=== PATIENT | male | born 1955 | race Caucasian/White ===

== ENCOUNTER 2024-07-08 15:38 | Emergency (ER) | payer MEDICARE, MEDICAID, SELFPAY ==
--- NOTE | 2024-07-08 15:42 | EKG_ITS ---
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1955 Requested By: ED Temporary Provider Order Number: [id number] Reading MD: ED Temporary Provider Measurements Intervals [place] Rate: 67 P: 22 VT: 188 QRS: -10 QRSD: 144 T: -13 QT: 449 QTc: 474 Interpretive Statements SINUS RHYTHM WITH OCCASIONAL VENTRICULAR PREMATURE COMPLEXES POSSIBLE LEFT ATRIAL ENLARGEMENT [-0.1mV P-WAVE IN V1/V2] INDETERMINATE AXIS RIGHT BUNDLE BRANCH BLOCK [120+ ms QRS DURATION, UPRIGHT V1, 40+ ms S IN I/aVL/V4/V5/V6] MODERATE T-WAVE ABNORMALITY, CONSIDER LATERAL ISCHEMIA [-0.1+ mV T-WAVE IN I/aVL/V5/V6] Compared to ECG 03/24/2022 15:20:25 Ventricular premature complex(es) now present T-wave abnormality now present Possible ischemia now present /store/S0/[id number]/ecg/[id number].pdf
[2024-07-08 15:57] VITALS: BP 131/78; PULSE 69; RESP 22; TEMP 36.8; O2SAT 98
--- NOTE | 2024-07-08 15:59 | XR_ITS ---
Examination: PA lateral chest 2 views TECHNIQUE: Upright PA lateral chest 2 views Exam date and time: July 08, 2024 1728 hours INDICATIONS: Shortness of breath chest pain beginning today. FINDINGS: Bibasilar pneumonia, significant right base Mild prominence left ventricle CABG IMPRESSION: Bibasilar pneumonia, significant right base
--- NOTE | 2024-07-08 15:59 | PD.EDRME ---
Rapid Medical Screening Exam RME Arrival date/time: 07/08/24 15:38 69-year-old male presents the emergency department for complaint of shortness of breath Chief Complaint: Shortness of Breath/Dyspnea Vital signs: Vital Signs Temperature 98.2 F 07/08/24 15:57 Pulse Rate 69 07/08/24 15:57 Respiratory Rate 22 H 07/08/24 15:57 Blood Pressure 131/78 H 07/08/24 15:57 Pulse Oximetry (%) 98 07/08/24 15:57 Oxygen Delivery Method Room Air 07/08/24 15:57
[2024-07-08 16:20] LABS: Basophils % (Auto) 0 % (0-2.5); Eosinophils # (Auto) 0.3 Thou/mm3 (0.0-0.5); Eosinophils % (Auto) 2 % (0-10); Hematocrit 38.8 % (41.0-53.0); Hemoglobin 13.3 g/dL (13.5-16.0); Immature Granulocytes % (Auto) 0 % (0-0); Immature Granulocytes Auto 0.04 Thou/mm3 (0.00-0.00); Lymphocytes # (Auto) 1.1 Thou/mm3 (1.0-4.8); Lymphocytes % (Auto) 8 % (10-50); Mean Corpuscular HGB Conc 34.3 g/dl (31.0-37.0); Mean Corpuscular Hemoglobin 30.2 pg (25.0-35.0); Mean Corpuscular Volume 88 fL (80-100); Monocytes # (Auto) 1.1 Thou/mm3 (0.0-0.8); Monocytes % (Auto) 8 % (0-12); Neutrophils # (Auto) 10.9 Thou/mm3 (1.8-7.7); Neutrophils % (Auto) 81 % (37-80); Nucleated Red Blood Cell % 0 /100 WBC (0); Platelet Count 158 Thou/mm3 (140-440); RDW Standard Deviation 47.3 fL (35.1-43.9); Red Blood Count 4.41 Miln/mm3 (4.50-5.90); White Blood Count 13.5 Thou/mm3 (3.8-10.6)
[2024-07-08 16:32] LABS: INR 1.1 (0.9-1.3); Partial Thromboplastin Time 27.8 Seconds (22.0-36.0); Prothrombin Time 12.2 Seconds (9.0-12.2)
[2024-07-08 16:40] LABS: Alanine Aminotransferase 21 U/L (10-49); Albumin, Serum 4.2 gm/dL (3.4-4.8); Albumin/Globulin Ratio 1.5 (1.2-2.2); Alkaline Phosphatase 108 U/L (46-116); Anion Gap 6 (7-16); Aspartate Amino Transferase 26 U/L (0-34); BUN/Creatinine Ratio 21 Ratio (12-20); Bilirubin,Total 0.7 mg/dL (0.3-1.2); Blood Urea Nitrogen 29 mg/dL (9-23); Calcium 8.9 mg/dL (8.3-10.6); Calcium (Corrected) 8.9 mg/dL (8.5-10.1); Carbon Dioxide 26.1 mMol/L (20.0-31.0); Chloride 110 mMol/L (98-107); Creatinine (Component) 1.4 mg/dL (0.6-1.3); Globulin 2.8 gm/dL (2.3-3.5); Glucose 100 mg/dL (74-106); Magnesium 1.9 mg/dL (1.6-2.6); Osmolality,Calculated 288 (275-295); Potassium 4.4 mMol/L (3.4-5.1); Sodium 142 mMol/L (136-145); Troponin I 0.032 ng/mL (0.0-0.045); eGFR 54 See Note
[2024-07-08 16:45] LABS: B-Type Natriuretic Peptide 837 pg/mL (0-100)
[2024-07-08 20:17] VITALS: BP 149/100; PULSE 80; RESP 17; TEMP 36.7; O2SAT 97
--- NOTE | 2024-07-08 20:23 | PD.EDADULT ---
ED General RME/HPI General Chief complaint: Shortness of Breath/Dyspnea Stated complaint: SOB X 3 MONTHS Time Seen by Provider: 07/08/24 19:57 Arrival date/time: 07/08/24 15:38 CC: Shortness of breath and back pain HPI patient is a very poor historian is not sure how long it has been going on. Patient states he denies fever. Patient is disheveled ill kempt I am not sure if this patient is homeless or not. Patient denies chest pain RME / HPI RME / HPI narrative: 07/08/24 15:38 69-year-old male presents the emergency department for complaint of shortness of breath Related Data Previous Rx's ?Medication ?Instructions ?Recorded acetaminophen 325 mg capsule 650 mg (2 x 325 mg) PO QID PRN 03/24/22 (Tylenol) pain #60 caps pentoxifylline 400 mg 400 mg PO BID #30 tabs 03/24/22 tablet,extended release doxycycline hyclate 100 mg capsule 100 mg PO BID #14 caps 07/08/24 Allergies Allergy/AdvReac Type Severity Reaction Status Date / Time No Known Allergies Allergy Verified 07/08/24 15:39 Review of Systems Review of Systems Narrative Review of Systems: GEN: No fever, no chills, no weight loss EYES: No discharge, no visual changes, no pain HEENT: No ear pain, no congestion, no sore throat PULM: + shortness of breath, no cough, no congestion CV: No chest pain, no dyspnea on exertion, no palpitations GI: No nausea, no vomiting, no diarrhea, no pain, no constipation : No frequency, no urgency, no dysuria MUSC/SKEL: No joint pain, no back pain SKIN: No rash PSYCH: No hallucinations, no depression HEME/LYMPH: No easy bleeding or bruising tendencies NEURO: No weakness, no headache Past Medical History Past Medical History NEUROLOGIC: Negative Neurological Disorders CARDIAC: Positive Cardiac Disorders, Coronary Artery Disease, Atherosclerotic Heart Disease, Hypercholesterolemia, Congestive Heart Failure, Edema and Hypertension; Negative Myocardial Infarction, Cardiac Arrhythmia, Atrial Fibrillation, Angina, Heart Murmur, Peripheral Vascular Disease, Aneurysm, Congenital Heart Disease, Valvular Heart Disease, Rheumatic Fever, Cardiomyopathy, Pericarditis, Cellulitis, Deep Vein Thrombosis, Hypotension or Varicose Veins RESPIRATORY: Negative Chronic Obstructive Pulmonary Disease (COPD) GASTROINTESTINAL: Positive Gastrointestinal Disorders GENITOURINARY: Negative Genitourinary Disorders or Renal Disease MUSCULOSKELETAL: Negative Musculoskeletal Disorders ENDOCRINE: Negative Endocrine Disorders, Diabetes Mellitus Type 1 or Diabetes Mellitus Type 2 HEMATOLOGIC: Negative Blood Disorders OTHER HISTORY: Negative Autoimmune Disease Family History FAMILY HISTORY: Positive Family Cardiac Disorders, Family Gastrointestinal Problems, Family Cancer and Family Surgery; Negative Family Respiratory Disorders or Family Anesthesia Reaction Surgical History SURGICAL: Positive Cardiac Surgery, Open Heart Surgery, Coronary Artery Bypass Graft and Abdominal Surgery; Negative Endocrine Surgery or Thyroidectomy Social History SMOKING STATUS: Current some day smoker ED Exam Narrative Physical exam: [General: Thin borderline emaciated ill kempt appears not in any acute distress Head normocephalic HEENT: Eyes pupils are PERRLA EOMs are intact mouth pink dry membranes uvula is midline swallow symmetrical phonation is normal. Nose no rhinorrhea. All the subsystems of HEENT are within acceptable limits Neck is supple nontender Chest equal chest rise nontender to palpation Respiratory: Clear to auscultation no wheezes crackles or rubs CV: Rate rhythm is regular no murmurs rubs or clicks Abdomen is distended secondary to body habitus soft nontender no masses positive bowel sounds all 4 quadrants Back: Stooped, lower thoracic spinous process tenderness with palpation. No surrounding erythema or edema. No lumbar spinous process tenderness. Skin: Intact no petechiae rash induration ulceration or crepitus Extremities: Moving all extremities against resistance cap refill less than 2 seconds neurosensory intact Neuro: Awake alert oriented x3 Glascow coma 15 no focal deficits] Course Course Course Narrative: Reassessment of this patient at 2220, the patient is sound asleep oxygen saturations 95% blood pressure 131/84 with a pulse rate of 72. At this time comfortable discharging the patient home with outpatient antibiotics for pneumonia. Patient remains afebrile nontoxic-appearing Quality Measures none Orders Category Date Time Status EKG (ED ONLY) *Do not use* NOW Care 07/08/24 15:42 Completed Saline [Insert IV] NOW Care 07/08/24 20:03 Active Saline [Insert IV] NOW Care 07/08/24 20:32 Active EKG (ED Only) Stat Exams 07/08/24 15:42 Draft XR chest 2V Stat Exams 07/08/24 15:59 Completed B-Type Natriuretic Peptide Stat Lab 07/08/24 16:05 Completed CBC Stat Lab 07/08/24 16:05 Completed Comprehensive Metabolic Panel Stat Lab 07/08/24 16:05 Completed Drug Screen,Urine Stat Lab 07/08/24 15:59 Ordered Magnesium Stat Lab 07/08/24 16:05 Completed Partial Thromboplastin Time Stat Lab 07/08/24 16:05 Completed Prothrombin Time with INR Stat Lab 07/08/24 16:05 Completed Troponin I Stat Lab 07/08/24 16:05 Completed Urinalysis Stat Lab 07/08/24 15:59 Ordered Ondansetron Inj [Zofran Inj] Med 07/08/24 20:32 Discontinued 4 mg IV X1 ONE cefTRIAXone/D5w 1gm IV premix [Rocephin/D5w 1gm IV Med 07/08/24 20:04 Discontinued premix] 1 gm in 50 ml IV X1 fentaNYL INJ [Sublimaze Inj] Med 07/08/24 20:32 Discontinued 50 mcg IVP X1 ONE Vital Signs Vital signs: Vital Signs Temperature 98.2 F 07/08/24 15:57 Pulse Rate 69 07/08/24 15:57 Respiratory Rate 22 H 07/08/24 15:57 Blood Pressure 131/78 H 07/08/24 15:57 Pulse Oximetry (%) 98 07/08/24 15:57 Oxygen Delivery Method Room Air 07/08/24 15:57 Discharge Plan Plan Patient Disposition: HOME (Self Care) Patient condition on transfer: Stable Prescriptions/Referrals Prescriptions/Med Rec: New doxycycline hyclate 100 mg capsule 100 mg PO BID Qty: 14 0RF No Action pentoxifylline 400 mg tablet extended release 400 mg PO BID Qty: 30 0RF Rx Instructions: must administer with a meal/food acetaminophen [Tylenol] 325 mg capsule 650 mg PO QID PRN (Reason: pain) Qty: 60 0RF Referrals: No Primary/Family,Physician [Primary Care Provider] - In 1 week Bud Kwan MD [Physician] - In 1 week Problem List Clinical Impression: Pneumonia Patient/Caregiver Discharge Instructions Other Activity Instructions:: Rest drink plenty of fluids take the manage antibiotics as prescribed. If there is a worsening of symptoms return the emergency room for reevaluation. Education Materials: When You Have Pneumonia, ED Pneumonia (Adult) Print Language: Luxembourger Stand Alone Forms: Rae Award Info., Patient Portal Info Letter, Work/School Release PA/NURSE MIDWIFE/CLINICAL INSTRUCTOR Supervising Physician PA/NURSE MIDWIFE/CLINICAL INSTRUCTOR Supervising Physician: Flash Montelongo ENP MDM Clinical Information Provided by: patient Medical Records reviewed [facility] EKG Interpretation EKG #1: EKG Interpretation: EKG performed at 1605 shows a ventricular rate of 6 7 WV interval 188 QRS of 144 QTc of 464 sinus rhythm with occasional PVC Labs Lab(s) Interpretation(s): CBC shows a leukocytosis of 13.5 H&H of 13.3 and 38.3 respectively platelets at 158. Coags within acceptable limits CMP shows sodium 142 potassium of 4.4 chloride of 110 CO2 of 26.1 anion gap of 6 BUN of 29 creatinine 1.4 No transaminitis or T. bili elevation BNP of 837 Troponin of 0.032 Imaging Imaging interpretation: Interpreted by wa Imaging Interpretation(s): Chest x-ray is interpreted by radiology as a right base pneumonia Medication Administration(s) Medication Administration History Discontinued Medications Fentanyl Citrate (Fentanyl Cit Inj 50 Mcg/Ml Amp 2ml) 50 mcg IVP X1 ONE Stop: 07/08/24 20:33 Last Admin: 07/08/24 20:47 Dose: Not Given Documented By: JOSÉ LUIS Non-Admin Reason: Wrong Patient Ceftriaxone Sodium/Dextrose (Rocephin/D5w 1gm Iv Premix) 1 gm in 50 mls @ 100 mls/hr IV X1 ONE Stop: 07/08/24 20:33 Last Admin: 07/08/24 20:38 Dose: 100 mls/hr Documented By: JOSÉ LUIS Ondansetron HCl (Ondansetron Inj 2 Mg/Ml Inj 2 Ml) 4 mg IV X1 ONE; Protocol Stop: 07/08/24 20:33 Last Admin: 07/08/24 20:47 Dose: Not Given Documented By: JOSÉ LUIS Non-Admin Reason: Wrong Patient Diagnosis Differential Diagnosis ED Complaint MDM: Pneumonia CHF ACS MA
[2024-07-08 20:29] VITALS: BMI 21.1
[2024-07-08 20:32] VITALS: BP 149/100; PULSE 75; RESP 18; TEMP 36.8; O2SAT 94
[2024-07-08] MEDS: cefTRIAXone/D5w 1gm IV premix 1 GM/50 ML BAG IV (20:38)
[2024-07-08 22:00] VITALS: BP 131/84; PULSE 74; RESP 14; O2SAT 96
[2024-07-08 22:19] VITALS: BP 131/84; PULSE 73; RESP 17; TEMP 36.7; O2SAT 95
[2024-07-08 23:00] VITALS: BP 143/84; PULSE 81; RESP 12; O2SAT 96
[2024-07-09 00:19] VITALS: PULSE 80; RESP 18; TEMP 36.8; O2SAT 97
== END 2024-07-09 00:21 | disposition home or self-care (01) ==
PROVIDERS: Nurse Practitioner Primary Care; Emergency Provider Emergency Medicine
DX: J18.9 Pneumonia, unspecified organism (principal); I49.3 Ventricular premature depolarization; I45.10 Unspecified right bundle-branch block; F17.210 Nicotine dependence, cigarettes, uncomplicated
CPT/HCPCS: 36415; 71046; 80053; 80307; 81001; 83735; 83880; 84484; 85025; 85610; 85730; 93005; 99284; 99285; J0696